=== PATIENT | female | born 1945 | race Caucasian/White ===

== ENCOUNTER 2016-07-21 11:16 | Inpatient (IN) | payer MEDICARE, SELFPAY ==
[~2016-07-21] VITALS: Ht 170.2 cm; Wt 171.7 kg
--- NOTE | ~2016-07-21 | ECH ---
Transthoracic Echocardiography Report (TTE) Demographics Patient Name TRACE LIM Date of Study 07/21/2016 Patient Number [id number] Visit Number [id number] Date of 1945 Room Number 509 Accession Number [id number] Gender Female Age 71 year(s) Referring Eddie HERNANDEZ Body Former Angela Camacho Physician Jeffrey [facility] Branden Dorantes MD Physician Interpreting Eddie HERNANDEZ Fishing Rod Marker Physician Jeffrey Supervising Ordering Physician Branden Dorantes MD, MD/MLP Nurse Stress Case Specialist Conclusions Contractility Score Summary Normal Left Ventricular contractility was noted. Summary Technically adequate exam. The estimated left ventricular ejection fraction is 55-60%. The left ventricle is moderately dilated . Moderately dilated right ventricle with normal function. The right atrium is severely dilated. Moderate mitral regurgitation by color Doppler. There is moderate aortic regurgitation by color Doppler. Mild-moderate tricuspid regurgitation by color Doppler. There is moderate pulmonary hypertension. The pulmonary pressure (RVSP) is 52 mmHg. The ascending aorta appears moderately dilated. The maximum diameter measures 4 cm. Dilated IVC. Recommendation The patient will be given the results of this study by the physician who ordered the exam. Procedure Type of Study TTE procedure:Echo Complete SF. Procedure Date Date: 07/21/2016 Start: 03:20 PM Technical Quality: Adequate visualization Indications:Atrial fibrillation and Congestive heart failure. Appropriate Use Criteria: 9 Height: 67 inches Weight: 431 pounds BSA: 2.8 m Rhythm: Atrial fibrillation HR: 84 bpm BP: 93/52 mmHg M-Mode/2D Measurements LV Diastolic Dimension: 5.87 cm LV Systolic Dimension: 4.04 cm LV Septum Diastolic: 0.94 cm LV PW Diastolic: 0.96 cm AO Root Dimension: 3.18 cm Cardiac Output: 4.22 l/min LA Dimension: 4.8 cm Cardiac Index: 1.51 l/min*m RV Diastolic Dimension: 3.06 cm LA volume index: 34 ml/m LVOT: 1.71 cm LVOT VTI: 21.88 cm RV Base: 4.6 cm LV Stroke volume: 50.22 ml RV Mid: 2.8 cm LV Stroke volume index: 17.94 ml/m TAPSE: 2.6 cm TDI-S': 13 cm/s Doppler Measurements AV Peak Velocity: 1.5 m/s MV Peak E-Wave: 1.4 m/s AV Peak Gradient: 9 mmHg AV Mean Gradient: 7.21 mmHg MV P1/2t: 67.2 msec LVOT Peak Velocity: 0.9 m/s AV Area (Continuity):1.37 cm AV P1/2t: 401.8 msec MV Area (PHT): 3.27 cm TR Velocity:3.05 m/s PV Peak Velocity: 0.91 m/s TR Gradient:37.21 mmHg PV Peak Gradient: 3.35 mmHg Estimated RAP:15 mmHg Estimated PASP: 52.21 mmHg Estimated RVSP: 52 mmHg E' Septal Velocity: 0.11 m/s E' Lateral Velocity: 0.13 m/s RA Area: 29.99 cm Findings Left Ventricle The left ventricle is moderately dilated . Diastolic function indeterminate due to patient's arrhythmia. Right Ventricle Moderately dilated right ventricle with normal function. Left Atrium Normal left atrial size. Right Atrium The right atrium is severely dilated. Mitral Valve Mild-moderate mitral annular calcification. Moderate mitral regurgitation by color Doppler. Aortic Valve The aortic valve is mildly sclerotic. There is moderate aortic regurgitation by color Doppler. Tricuspid Valve Normal tricuspid valve structure and function. Mild-moderate tricuspid regurgitation by color Doppler. There is moderate pulmonary hypertension. The pulmonary pressure (RVSP) is 52 mmHg. Pulmonic Valve The pulmonic valve is not well visualized. Pericardial Effusion No evidence of pericardial effusion. Miscellaneous The ascending aorta appears moderately dilated. The maximum diameter measures 4 cm. Pleural Effusion No evidence of pleural effusion. Contractility Score LV regional wall motion:(0-Non visualized 1-Normal 2-Hypokinesis 3-Akinesis 4-Dyskinesis 5-Aneurysm) Signature
[2016-08-02] MEDS ORDERED: DAILY MULTIPLE1 EAC1 PO (10:20)
[2016-08-02] MEDS ORDERED: LASIX DPS80 MG PO (10:20)
[2016-08-02] MEDS ORDERED: PRAVACHOL20 MG PO (10:21)
[2016-08-02] MEDS ORDERED: POTASSIUM CHLO20 ME2 PO (10:21)
[2016-08-02] MEDS ORDERED: COUMADIN5 MG PO ×2 (10:22→10:23)
[2016-08-02] MEDS ORDERED: LISINOPRIL2.5 MG PO (10:22)
[2016-08-02] MEDS ORDERED: SYMBICORT80 MCG/6.9 IH (10:23)
[2016-08-02] MEDS ORDERED: MIRALAX PACKET17 GM PO (10:23)
[2016-08-02] MEDS ORDERED: CELEBREX100 MG PO (10:23)
[2016-08-02] MEDS ORDERED: FLONASE 0.05% D16 GM NS (10:24)
[2016-08-02] MEDS ORDERED: TYLENOL EXTRA500 M1 PO (10:24)
[2016-08-02] MEDS ORDERED: FLEXERIL DPS5 MG PO (10:24)
[2016-08-02] MEDS ORDERED: TOPROL XL DPS25 MG PO (10:24)
[2016-08-02] MEDS ORDERED: MYCOSTATIN PWD15 GM TP (10:25)
--- NOTE | 2016-08-09 09:52 | CO ---
ADMIT: 07/21/2016 RM/LOC: 509 [facility] MR#: [id number] 2620 [facility] [address] [place] [id number] RAPHAELTRACE Alice ST[place] [address] [address] Consultation SEX: F AGE: 71 : 1945 Corrected: 07/22/2016 0802 njv DATE OF CONSULTATION: 07/21/2016 ATTENDING PHYSICIAN: Jose E Otero CONSULTING PHYSICIAN: Jeffrey Morgan MD REASON FOR CONSULTATION: [id number] congestive heart failure and atrial fibrillation. HISTORY OF PRESENT ILLNESS: The patient is a pleasant 71-year-old female, who I had the opportunity to consult for cardiology regarding her congestive heart failure and atrial fibrillation. The patient has a personal history of aortic regurgitation, type 2 diabetes, morbid obesity, asthma, and hypertension. The patient arrived to the Emergency Department at [facility] and had excessive lymphedema. The patient states this has been a gradual increase in fluid retention. She states that she was prescribed an antibiotic on July 13 because her primary care physician thought it was an infection in her leg and she will finish this antibiotic Monday. The patient said that she has noticed an increase in weight since April and accumulating 100 pounds since then. The patient was last seen in [email or web address] clinic by Dr. Cruz in August 2015. At that time, Dr. Cruz believed, she was doing well from a cardiovascular standpoint. Her blood pressure was well controlled and she was anticoagulated for her atrial fibrillation. At that time, her edema seemed to be stable and he recommended giving compression stockings to help other dependent edema. In regard to her exercise intolerance he stated that it was secondary to deconditioning, however, she also a has history of moderate mitral regurgitation. At that visit, they ordered an echocardiogram to assess her bowel function as well as her ejection fraction. Her ejection fraction at that time revealed an ejection fraction of 55% to 60% and Dr. Cruz stated he would follow up with her in 1 year. At this time, the patient is stable. She denies chest pain, shortness of breath, wheezing or feeling like she is going to pass out. PAST MEDICAL HISTORY: Significant for [id number] congestive heart failure, AFib, aortic regurgitation, type 2 diabetes, morbid obesity, asthma, and hypertension. PAST SURGICAL HISTORY: Bilateral cataract extraction, cholecystectomy, total abdominal hysterectomy, bilateral salpingo-oophorectomy, breast biopsy, and colonoscopy. FAMILY HISTORY: Significant for the following: Her mother had a CVA at the age of 80. Her sister at the age of 40 of congestive heart failure. Her brother had diabetes. Her dad of colon cancer and she unsure of the age, and a different brother had a stroke. ADMIT: 07/21/2016 RM/LOC: 509 [facility] MR#: [id number] [address] [phone] TRACE LIM [address] [place] [address] Consultation SEX: F AGE: 71 : 1945 SOCIAL HISTORY: The patient is retired nurse. She is a . She was for 42 years before her passed. She is on a low-carb diet. She drinks approximately 20 ounces of caffeine per day and she denies alcohol or drug abuse. HOME MEDICATIONS: 1. Doxycycline 100 mg b.i.d. x10 days p.o. 2. Multivitamin daily p.o. 3. Ciprofloxacin 500 mg b.i.d. x10 days p.o. 4. Furosemide 5 mg daily p.o. 5. Potassium chloride 20 mEq b.i.d. p.o. 6. Pravastatin 20 mg at bedtime p.o. 7. Lisinopril 10 mg daily p.o. 8. Warfarin 5 mg daily p.o. 9. Metoprolol succinate 100 mg b.i.d. p.o. 10.Celebrex 100 mg daily p.o. 11.MiraLax 17 g daily p.r.n. p.o. 12.Symbicort 80/4.5 mcg 2 puffs b.i.d. p.r.n. inhaler. 13.Acetaminophen 1000 mg q.4 hours p.r.n. take 2 times 500 mg tablets p.o. REVIEW OF SYSTEMS: Per Dr. Morgan. GENERAL: The patient admits to tiring easily and she has known this to be gradual over the last several weeks. She also states that she has had a 100 pound weight gain since this last April. She denies recent fevers or sweats, but she does admit to chills. EYES: The patient admits to glaucoma and cataracts, but denies blurry vision or vision loss. ENT: The patient admits to no sinus and hearing deficiency. PULMONARY: The patient admits to asthma, chronic bronchitis, chronic cough, waking up multiple times in the night and tiring first thing in the morning, but denies bloody sputum or snoring loudly. GASTROINTESTINAL: The patient admits to difficulty swallowing, hiatal hernia and hepatitis A. The patient denies heartburn, reflux, stomach ulcer, rectal bleeding, or gallbladder problems. GENITOURINARY: Denies dysuria, hematuria, nocturia, urinary tract infection, or kidney stones. Denies history of renal insufficiency or failure. MUSCULOSKELETAL: The patient admits to osteoarthritis and muscle and joint pains, but denies gout. ENDOCRINE: Denies history of thyroid dysfunction or diabetes. HEMATOLOGIC: The patient admits to skin and endometrial cancer. The patient denies anemia or bleeding problems. NEUROLOGIC: The patient admits to chronic headaches, numbness and tingling in her hands and feet, but denies stroke or seizure disorder. PSYCHIATRIC: Denies history of mental illness or feelings of depression. ADMIT: 07/21/2016 RM/LOC: 509 [facility] MR#: [id number] 2620 [facility] [address] [place] [phone] TRACE LIM [facility] [address] [place] [address] Consultation SEX: F AGE: 71 : 1945 PHYSICAL EXAMINATION: Per Dr. Morgan.VITAL SIGNS: Temperature 97.5, pulse 122, respirations 20, blood pressure 93/52, and oxygen saturation is 95%. SKIN: [place], warm and dry. EYES: Sclerae clear. No xanthelasmas. ENT: Oral mucosa is pink and moist. JVP was difficult to assess. CHEST: Respirations are even and unlabored. Lungs are clear to auscultation. HEART: Irregularly irregular heart rate and distal heart sounds. ABDOMEN: Distant bowel sounds. Obese. MUSCULOSKELETAL: Gait is normal. EXTREMITIES: 3 to 4+ edema bilaterally. PSYCHIATRIC: Alert and oriented. Mood and affect are appropriate. DIAGNOSTIC DATA: Sodium 141, potassium 4.7, chloride 106, bicarb 27, BUN 18, creatinine 0.7, and glucose 112. ProBNP is 1206, CRP is 0.81. Albumin is 3.3, calcium 8.4. Chest x-ray demonstrated cardiomegaly with improved interstitial edema. EKG revealed atrial fib with a rate of 77 and right bundle branch block. A bilateral venous Doppler is also ordered. IMPRESSION AND PLAN: Per Dr. Morgan. 1. Acute on chronic diastolic heart failure, history of normal ejection fraction. We will repeat echo. We will continue IV Lasix, but increase her dose to 80 mg IV b.i.d. I am not certain of dry weight, but she is 50 pounds above weight from her August 2015 visit in [facility]. She thinks she is up a 100 pounds since April when she hurt her leg. 2. Cellulitis, per PCP. 3. Permanent atrial fibrillation, on Coumadin and beta-jonathan. 4. Mitral regurgitation, recheck. 5. Hypertension. Thank you for the cardiology consult. I have read and agreed with the documentation that has been completed regarding this visit. By signing this record, I attest that the documentation was completed in my physical presence and is an accurate record of the encounter. MADELEINE Martinez Student / Jeffrey Morgan MD / salvatore JOB #: [id number] CC: Jose E Otero, Attending Physician Jose E Otero, Family Physician Corrected: 07/22/2016 0802 max
--- NOTE | 2016-08-27 15:45 | HP ---
ADMIT: 07/21/2016 RM/LOC: 509 [facility] MR#: [id number] [address] [facility] [address] [place] [phone] LIMANIAA Alice ST[place] [address] [address] History and Physical SEX: F AGE: 71 : 1945 DATE OF SERVICE: CHIEF COMPLAINT: Lower extremity edema. HISTORY OF PRESENT ILLNESS: This is a 71-year-old, white female, who was seen last week by Dr. Knowles for an open oozing wound on the upper lateral aspect of her left calf. He felt that she was developing some cellulitis and had an open sore, started her on some Cipro and doxycycline. Trace states that the drainage has completely resolved. However, she feels like the edema is getting worse. She has significant morbid obesity with bilateral lymphedema and chronic lower extremity swelling. She has gained at least 40 pounds in the last several months, all of which appears to be fluid. She has pitting edema up to her mid upper thigh. She is no longer able to really get up out of a chair safely. She lives at home, lives alone. Therefore, she is being admitted for further workup and stabilization. PAST MEDICAL HISTORY: Remarkable for: 1. Paroxysmal atrial fibrillation. 2. Uterine cancer with subsequent hysterectomy. 3. Diabetes mellitus type 2, diet controlled. 4. Asthma. 5. Morbid obesity. 6. DJD. 7. Seasonal allergies. 8. Peptic ulcer disease. 9. Diabetic neuropathy. 10.Chronic lower extremity lymphedema. 11.DJD. SURGERIES: Include hysterectomy for the uterine cancer, appendectomy, cholecystectomy, tonsil and adenoidectomy, cataract surgery, hip surgery, and recent colonoscopy. CURRENT MEDICATIONS: Include: 1. Cipro 500 mg b.i.d. 2. Doxycycline 100 mg b.i.d. 3. Celebrex 100 mg daily. 4. Pravachol 20 mg at bedtime. 5. Warfarin 5 mg daily. 6. Potassium chloride 20 equivalents b.i.d. 7. Lisinopril 10 mg daily. 8. Toprol-XL 100 mg daily. 9. Lasix 40 mg q.a.m. 10.Symbicort 160/4.5, one inhalation b.i.d. 11.Multivitamin daily. ALLERGIES: PENICILLIN AND CODEINE. FAMILY HISTORY: Father with colon cancer. Mother with diabetes, ADMIT: 07/21/2016 RM/LOC: 509 [facility] MR#: [id number] [address] [facility] [address] [place], [place] [address] TRACE LIM [facility] [address] [address] [place] [address] History and Physical SEX: F AGE: 71 : 1945 hypertension. One brother with KS. SOCIAL HISTORY: Does not smoke or drink alcohol. She is disabled and lives alone. REVIEW OF SYSTEMS: GENERAL: No fevers or chills. HEENT: No headaches, blurred vision, or double vision. CARDIAC: No chest pains. PULMONARY: Does complain of shortness of breath with minimal exertion. GASTROINTESTINAL: No nausea, vomiting, or diarrhea. : No dysuria, urgency, or frequency. ENDOCRINE: No polyuria or polydipsia. PSYCH: No depression. All others are negative. OBJECTIVE: VITAL SIGNS: Blood pressure is 120/68, pulse 104, respirations 22, temperature is 97.1. GENERAL: She is in no acute distress. She is alert and oriented, difficulty even ambulating without significant shortness of breath. HEENT: Pupils are reactive. Conjunctivae are clear. Clear oropharynx. Moist mucous membranes. NECK: Soft and supple without lymphadenopathy. No thyromegaly. LUNGS: With marked decreased breath sounds. Normal to percussion. HEART: Regular rate and rhythm. Heart sounds are distant. ABDOMEN: Obese, soft, and nontender. EXTREMITIES: No cyanosis. No clubbing. There is still erythema in the posterior aspect of that left lower extremity with pitting edema up to her mid upper thigh, more in the posterior region because she always sits in her chair. NEUROLOGIC: Cranial nerves II through XII are grossly intact. No focal deficits. ASSESSMENT: 1. Worsening bilateral lower extremity edema. ADMIT: 07/21/2016 RM/LOC: 509 [facility] MR#: [id number] [address] [address] TRACE LIM [facility] [place] [address] History and Physical SEX: F AGE: 71 : 1945 2. Aurlc-mo-ansuouq diastolic heart failure. 3. Left lower extremity cellulitis. 4. Aortic regurgitation. 5. Diet-controlled diabetes mellitus type 2. 6. Morbid obesity. 7. Paroxysmal atrial fibrillation. 8. Asthma. PLAN: We will admit. Check echo. Elevate legs as much as possible. Lasix 40 mg IV b.i.d. Check EKG and chest x-ray. Start IV Levaquin. [facility] to see. We will check venous Dopplers. ADA diet. We will change treatment as hospital course dictates. Jose E Otero MD/ salvatore JOB #: [id number] CC: Jose E Otero, Attending Physician Jose E Otero, Family Physician
--- NOTE | 2016-09-18 07:44 | DS ---
ADMIT: 07/21/2016 RM/LOC: 509 [facility] MR#: [id number] 2620 [facility] [address] [place] [phone] TRACE LIM [address] [address] Discharge Summary SEX: F AGE: 71 : 1945 ADMISSION DATE: 07/21/2016 DISCHARGE DATE: 08/01/2016 FINAL DIAGNOSES: 1. Left lower extremity cellulitis. 2. Acute on chronic diastolic heart failure. 3. Aortic regurgitation. 4. Atrial fibrillation. 5. Morbid obesity. 6. Diet-controlled diabetes mellitus type 2. 7. Asthma. 8. Pulmonary hypertension. 9. Hypokalemia. REASON FOR ADMISSION: Trace is a very pleasant, 71-year-old white female morbidly obese with a one-week history of oozing, draining wound left lateral lower extremity. Started on Cipro and doxycycline a week previous by Dr. Knowles. Presented for followup with still significant erythema and bilateral extremity edema, shortness of breath with minimal exertion. She was extremely volume overloaded and required admission. HOSPITAL COURSE: Was admitted on 07/21/2016 to telemetry. [facility] was consulted who ordered an echocardiogram. She was placed on IV Levaquin. PT was ordered. We did bilateral lower extremity venous Dopplers and aggressive IV Lasix diuresis was also ordered. We did place her on a 2000 mL per 24 hour fluid restriction. Nystatin powder to abdominal folds. Coumadin was used for DVT prophylaxis. On 07/22 had some sinus congestion but breathing better. She was placed on some Mucinex and fluticasone. We continued her diuresis. We did encourage ambulation. We did adjust her Coumadin dose. On 07/23 we continued diuresis and adjusted Coumadin dose again as on 07/24, and 07/25 she continued to diurese. Her weight continued to come down. She was feeling "less tight in her legs." On 07/25 her IV Levaquin was changed to p.o. On 07/26 diuresis became a little bit sluggish. Her creatinine was stable so we did increase her IV Lasix to 100 mg b.i.d. We did make some arrangements for Home Health Care upon discharge. On 07/28 she was feeling a little bit better. Her volume status continued to improve. Creatinine had started to increase a little bit. Pressures were a little bit low. 07/29 we continued her diuresis. On 07/30 her potassium was a little bit low, so this was replaced orally. Potassium was still a little bit low and this was again replaced orally. Blood pressures were a little bit low so we lowered her Zestril and her Toprol-XL. On 07/31 she felt a little bit dry. Still had 3+ edema. We stopped her IV Lasix and changed her over to p.o. 08/01 okay night. Feeling better. Denied any new complaints. Cardiology was okay with discharge, and she was discharged with help of Home Health. DISCHARGE INSTRUCTIONS: 1. Celebrex 100 mg daily. 2. Coumadin 7.5 mg Monday, Monday, Monday and 5 mg Monday, Monday, , Monday. Flexeril 5 mg t.i.d. p.r.n. ADMIT: 07/21/2016 RM/LOC: 509 [facility] MR#: [id number] [facility] [address] [address] TRACE LIM [facility] [place] [address] Discharge Summary SEX: F AGE: 71 : 1945 3. Klor-Con 20 mEq q.i.d. 4. Lasix 80 mg b.i.d. 5. Multivitamin daily. 6. Toprol-XL 25 mg b.i.d. 7. Zestril 2.5 mg daily. 8. Flonase 2 sprays at bedtime. 9. Mycostatin powder b.i.d. 10.MiraLAX 17 g p.r.n. 11.Tylenol 325 mg 2 q.4 hours p.r.n. 12.Multivitamin daily. 13.Pravastatin 20 mg at bedtime. 14.Symbicort 2 puffs b.i.d., 80/4.5 mcg. 15.Acetaminophen 1000 mg q.4 hours p.r.n. Follow up with Dr. Otero August 08. Low-sodium diet. PT/INR and BMP on August 08. Follow up with [facility] per their wishes. Total discharge time was greater than 30 minutes. Jose E Otero MD/ mitesh JOB #: [id number] CC: Jose E Otero MD, Attending Physician Jose E Otero MD, Family Physician
== END 2016-08-01 13:44 | disposition home health service (06) | DRG 292 ==
LOC: 5MS 11:16
PROVIDERS: ADMIT Family Medicine
DX: I11.0 Hypertensive heart disease with heart failure (principal); L03.116 Cellulitis of left lower limb; E11.40 Type 2 diabetes mellitus with diabetic neuropathy, unspecified; I27.2 Other secondary pulmonary hypertension; Z68.44 Body mass index [BMI] 60.0-69.9, adult; I08.0 Rheumatic disorders of both mitral and aortic valves; I50.33 Acute on chronic diastolic (congestive) heart failure; E66.01 Morbid (severe) obesity due to excess calories; I48.2 Chronic atrial fibrillation; I89.0 Lymphedema, not elsewhere classified; E87.6 Hypokalemia; J45.909 Unspecified asthma, uncomplicated; M19.90 Unspecified osteoarthritis, unspecified site; Z82.49 Family history of ischemic heart disease and other diseases of the circulatory system; Z85.42 Personal history of malignant neoplasm of other parts of uterus; Z90.710 Acquired absence of both cervix and uterus; Z87.11 Personal history of peptic ulcer disease